=== PATIENT | female | born 1990 ===

== ENCOUNTER 2019-04-29 07:49 | Inpatient (IN) ==
[2019-04-29] MEDS ORDERED: OXYTOCIN 30 UNITS/500 ML BAG IV PRN ×2 (08:10)
[2019-04-29 08:31] LABS: Hematocrit (blood only) 36.6 % (37-47); Hemoglobin 12.6 g/dL (12.0-16.0); Mean Corpuscular Volume 97.3 fL (80-100); Mean Platelet Volume 10.4 fL (7.4-10.4); Platelet Count 223 K/uL (130-400); RDW Coefficient of Variation 13.7 % (11.5-14.5); Red Blood Count 3.76 M/uL (4.2-5.4); White Blood Count 10.18 K/uL (4.8-10.8)
[2019-04-29 08:34] LABS: Mean Corpuscular Hgb Conc 34.4 g/dL (32-36)
[2019-04-29] MEDS: LACTATED RINGER'S 1,000 ML IV PRN ×3 (08:46→16:29)
--- NOTE | 2019-04-29 09:05 | History & Physical Report ---
Date of Service April 29, 2019 Assessment & Plan (1) Encounter for induction of labor: IUP at 39 weeks for IOL now vertex presentation. The baby had been breech since at least 36 weeks. begin pitocin induction patient will want epidural analgesia when appropriate anticipate vaginal delivery. Present on Admission?: Yes History of Present Illness Primary Care Provider: NO PCP Patient is a 29 yo white female EDC 05/04/19 who presents at 39 weeks for IOL. The baby had been breech at least since 36 weeks & was scheduled for C/S today. However, on exam in the office yesterday the baby was vertex. The patient and her were given the option to await labor vs start IOL now & they wish to proceed with induction. GBS (-) Allergies Allergy/AdvReac Type Severity Reaction Status Date / Time No Known Allergies Allergy Verified 04/28/19 09:35 Home Medications Home Medications Medication Instructions Recorded Confirmed Type calcium carbonate 1 dose PO DAILY 04/22/19 04/29/19 History prenat.vits,leslie,[id number] 1 dose PO DAILY 04/22/19 04/29/19 History Patient History Family History Grandmother (Maternal) Family history of diabetes mellitus Hypertension Social History Preferred Language: Japanese Communication Ability: Effective Human Resources Recruiter Required: No Beliefs That Will Affect Care: None marital status: Current Living Situation: Spouse Current Living Situation Comment: spouse Other Information That Helps Us Care for You: No Feels Safe at Home: Yes Safety Concerns: Feels Safe At This Time Smoking Status: Never smoker Second Hand Exposure: No ; Hx Alcohol Use: No Hx Substance Use: No Review of Systems All systems reviewed & are unremarkable except as noted in HPI & below Physical Exam Constitutional: WD/WN, vitals as above Respiratory: normal respiratory effort, lungs clear to auscultation Cardiovascular: RRR, no murmur, no edema Gastrointestinal (Abdomen): normal bowel sounds, soft, nontender, no hepatosplenomegaly Genitourinary: OB Exam Abdomen: + vertex (by exam & sonogram today), + estimated weight (7-8 pounds) and + irregular contractions Manual OB Exam: + cervical dilation 2 cm, + cervical effacement 70% and + station -2 (ballotable) OB Exam Monitor Tracing: + external FHT monitor used, + external uterine monitor used, + category I and + normal FHT variability Results & Data Vital Signs (Past 12 Hours) Vital Signs Pulse BP 04/29/19 07:53 66 127/79
[2019-04-29] MEDS ORDERED: ePHEDrine sulfate 50 MG/ML AMP ONE (14:21)
[2019-04-29] MEDS ORDERED: BUPIVACAINE 0.25% 30 ML VIAL ONE (14:21)
[2019-04-29] MEDS ORDERED: fentaNYL 2MCG/ML ROPIV 1.25MG/ML 100 ML BAG EPI ONE (14:22)
[2019-04-29] MEDS ORDERED: fentaNYL citrate 100 MCG/2 ML VIAL ONE (14:22)
--- NOTE | 2019-04-29 14:36 | Anesthesiology Consultation ---
Date of Service April 29, 2019 Assessment & Plan (1) Encounter for pre-operative examination: Chart Review Chart Review: Patient NOT seen in Pre Admission Testing and Acceptable Risk for Labor Epidural Consults Requested none History Height/Weight Height: 5 ft 2 in Weight: 65.317 kg Allergies Allergy/AdvReac Type Severity Reaction Status Date / Time No Known Allergies Allergy Verified 04/28/19 09:35 Medications Home Medications Medication Instructions Recorded Confirmed Last Taken calcium carbonate 1 dose PO DAILY 04/22/19 04/29/19 Unknown prenat.vits,leslie,[id number] 1 dose PO DAILY 04/22/19 04/29/19 04/27/19 08:00 Active Medications Generic Name Dose Route Start Last Admin Trade Name Freq PRN Reason Stop Dose Admin Lactated Ringer's 1,000 mls @ 125 mls/hr 04/29/19 08:10 04/29/19 14:25 Lr IV 05/01/19 08:09 999 mls/hr .Q8H PRN Infusion L&D Protocol Protocol Oxytocin 30 units in 500 mls @ 17 mls/hr 04/29/19 08:10 04/29/19 14:05 Pitocin IV 05/01/19 08:09 1.02 units/hr .Q24H PRN 17 mls/hr Labor Induction/Augmentation Titration Protocol 1.02 UNITS/HR Past Medical History Medical History No known health problems Exercise / Class Metabolic Activity II 4-5 Yardwork/Stairs/Walk up hill Past Family History Family History Grandmother (Maternal) Family history of diabetes mellitus Hypertension Past Surgical History Surgical History History of wisdom tooth extraction Past Anesthesia History No Hx of Anesthesia Complications and No Family Hx of Anesthesia Complications History of PONV No Hx of PONV and No Hx of Motion Sickness Social History Smoking Status: Never smoker Hx Alcohol Use: No Hx Substance Use: No substance use type: does not use Physical Exam Vital Signs Last Vital Signs Temp 36.7 C 04/29/19 14:31 Pulse 63 04/29/19 14:31 Resp 18 04/29/19 14:31 BP 154/78 H 04/29/19 14:31 Pulse Ox 95 04/29/19 14:31 Testing Laboratory Results 04/29/19 08:23
[2019-04-29] MEDS ORDERED: DiphenhydrAMINE HCL 50 MG/ML VIAL IV PRN (15:06)
[2019-04-29] MEDS ORDERED: fentaNYL 2MCG/ML ROPIV 1.25MG/ML 100 ML BAG EPI PRN (15:06)
[2019-04-29] MEDS ORDERED: NALBUPHINE HCL INJ 10 MG/ML AMP IV PRN (15:06)
[2019-04-29] MEDS ORDERED: ONDANSETRON INJ 2 MG/ML 2 ML VIAL IV PRN (15:06)
[2019-04-29] MEDS ORDERED: NALOXONE HCL 1 MG in SODIUM CHLORIDE 0.9% 1000ML 1,000 ML IV PRN (15:06)
[2019-04-29] MEDS ORDERED: NALOXONE HCL 0.4 MG/1 ML VIAL/CARP IV PRN (15:06)
[2019-04-29] MEDS ORDERED: ePHEDrine sulfate 50 MG/ML AMP IV PRN (15:06)
[2019-04-29] MEDS ORDERED: CALCIUM CARBONATE 500 MG CHEWABLE TAB PO PRN (23:38)
[2019-04-30] MEDS: LACTATED RINGER'S 1,000 ML IV PRN (00:20)
[2019-04-30] MEDS ORDERED: SUPERCREAM 0.870% 15 GM JAR EXT PRN (01:39)
[2019-04-30] MEDS ORDERED: BENZOCAINE 20% AER SPR 82.5 GM CAN EXT PRN (01:39)
[2019-04-30] MEDS ORDERED: ACETAMINOPHEN 325 MG TAB PO PRN (01:39)
[2019-04-30] MEDS ORDERED: HYDROCORTISONE ACETATE 25 MG SUPP PR PRN (01:39)
[2019-04-30] MEDS ORDERED: BISACODYL 10 MG SUPP PR PRN (01:39)
[2019-04-30] MEDS ORDERED: OXYCODONE/ACETAMINOPHEN 5mg/325mg TAB PO PRN (01:39)
[2019-04-30] MEDS ORDERED: DIPHTHERIA/TETANUS/PERTUSSIS 0.5 ML SYR/VIAL IM ONE (01:39)
[2019-04-30] MEDS ORDERED: OXYTOCIN 30 UNITS/500 ML BAG IV PRN (01:39)
--- NOTE | 2019-04-30 04:24 | Anesthesia Procedure Note ---
Date of Service April 30, 2019 Anesthesia Post Epidural Note Vital Signs Vital Signs: Temp Pulse Resp BP Pulse Ox 36.7 C 84 16 135/71 87 L 04/30/19 01:38 04/30/19 03:40 04/30/19 03:40 04/30/19 03:40 04/30/19 01:34 Pain Intensity Bilateral Abdomen: Pain Intensity: 0 Notes Mental Status: alert / awake / arousable and participated in evaluation Patient Amnestic to Procedure: No Nausea / Vomiting: adequately controlled Pain: adequately controlled Airway Patency, RR, SpO2: stable & adequate BP & HR: stable & adequate Hydration State: stable & adequate Neuraxial Anesthesia: was administered and sensory block resolved Anesthetic Complications: no major complications apparent and Pt Satisfied with anesthetic care Epidural: Removed without complications and With tip intact
--- NOTE | 2019-04-30 04:25 | Delivery Summary ---
DATE OF OPERATION: 04/30/2019 DATE OF DELIVERY: 04/30/2019 The patient is a 29-year-old G1, P0 white female who presented for induction because of a prior breech presentation, now vertex at 39 weeks. She was begun on Pitocin for induction. She received epidural analgesia at 5 cm dilation. Membranes were ruptured for copious amount of clear fluid at approximately 7 cm dilation. At that point, there was persistent variable decelerations. The Pitocin was stopped. It was then restarted after the heart tracing had become category I once again. She progressed to full dilation and pushed effectively over intact perineum for delivery of a viable female infant. Mouth and nasopharynx were suctioned after the delivery of the infant. The cord was short and this was clamped and cut prior to putting the on the mother's abdomen. The was vigorous and crying and moving all 4 limbs. The placenta was expressed intact with a 3-vessel cord. A superficial abrasion of the vaginal wall was bleeding and therefore repaired with 3-0 chromic in the usual fashion. Estimated blood loss was 150 mL. Mother and were doing well after delivery. bleeding was controlled with dilute Pitocin. I attest to the content of the Intraoperative Record and any orders documented therein. Any exception s are noted below.
[2019-04-30] MEDS: PRENATAL VITAMIN 1 TAB PO SCH (08:11)
[2019-04-30] MEDS: DOCUSATE SODIUM 100 MG CAP PO SCH ×2 (08:11→20:12)
--- NOTE | 2019-04-30 09:34 | Obstetrical Progress Note ---
Date of Service April 30, 2019 Assessment & Plan (1) Encounter for care and examination after delivery: satisfactory exam. continue current care plan Subjective Ambulation: ambulating normally Voiding: no voiding problems Passing Gas:: Yes Diet Tolerance:: regular diet Lochia:: Small Feeding Type:: breast feeding Current Pain Level(1-10): 1 Review of Systems All systems reviewed & are unremarkable except as noted in HPI & below Physical Exam Constitutional WD/WN, vitals as above Genitourinary OB Exam Abdomen: + fundal height Fundus: + firm and + relation to umbilicus (at U) no calf tenderness Results & Data Vital Signs (Past 12 Hours) Vital Signs Temp Pulse Pulse Resp BP BP Pulse Ox 04/30/19 08:15 97.9 F 58 L 16 127/84 04/30/19 05:10 98.6 F 76 16 129/82 97 04/30/19 04:40 68 20 128/74 04/30/19 04:24 68 128/74 04/30/19 03:40 84 16 135/71 04/30/19 03:38 65 144/65 H 04/30/19 03:23 62 123/63 04/30/19 03:07 64 18 120/69 04/30/19 02:53 70 124/73 04/30/19 02:40 65 20 125/58 L 04/30/19 02:39 83 203/78 H 04/30/19 02:24 70 20 113/70 04/30/19 02:23 70 113/70 04/30/19 02:10 20 04/30/19 02:04 75 129/68 04/30/19 01:55 85 18 149/74 H 04/30/19 01:38 98.1 F 88 20 147/65 H 04/30/19 01:34 91 H 87 L 04/30/19 01:31 101 H 93 04/30/19 01:26 93 H 93 04/30/19 01:21 103 H 93 04/30/19 01:19 100 H 132/69 04/30/19 01:17 92 H 89 L 04/30/19 01:16 89 93 04/30/19 01:11 95 H 92 04/30/19 01:10 104 H 88 L 04/30/19 01:06 92 H 90 04/30/19 01:05 82 85 L 04/30/19 01:03 80 122/66 04/30/19 01:01 88 83 L 04/30/19 01:00 84 22 89 L 04/30/19 00:56 100 H 88 L 04/30/19 00:55 91 H 87 L 04/30/19 00:51 85 88 L 04/30/19 00:49 93 H 87 L 04/30/19 00:48 90 129/60 04/30/19 00:46 77 87 L 04/30/19 00:44 91 H 88 L 04/30/19 00:41 84 89 L 04/30/19 00:38 87 89 L 04/30/19 00:37 98.4 F 20 04/30/19 00:36 90 88 L 04/30/19 00:34 109 H 149/96 H 04/30/19 00:32 99 H 88 L 04/30/19 00:31 111 H 94 04/30/19 00:26 91 H 90 04/30/19 00:21 94 H 90 04/30/19 00:18 76 131/70 04/30/19 00:16 93 H 95 04/30/19 00:14 91 H 89 L 04/30/19 00:11 74 91 04/30/19 00:09 101 H 89 L 04/30/19 00:06 87 94 04/30/19 00:05 82 138/64 04/30/19 00:01 83 94 04/29/19 23:59 20 04/29/19 23:56 79 92 04/29/19 23:51 76 92 04/29/19 23:50 70 132/78 04/29/19 23:46 84 93 04/29/19 23:41 71 92 04/29/19 23:36 72 91 04/29/19 23:33 71 130/66 04/29/19 23:31 78 93 04/29/19 23:26 73 91 04/29/19 23:21 94 H 95 04/29/19 23:18 75 124/76 04/29/19 23:16 84 93 04/29/19 23:11 73 94 04/29/19 23:06 71 93 04/29/19 23:03 70 123/65 04/29/19 23:01 72 94 04/29/19 22:56 67 92 04/29/19 22:51 65 92 04/29/19 22:49 64 122/65 04/29/19 22:46 68 94 04/29/19 22:41 66 93 04/29/19 22:37 63 89 L 04/29/19 22:36 63 90 04/29/19 22:35 98.4 F 20 04/29/19 22:33 64 115/64 04/29/19 22:31 76 92 04/29/19 22:26 67 87 L 04/29/19 22:21 67 88 L 04/29/19 22:19 68 89 L 04/29/19 22:18 63 124/75 04/29/19 22:16 70 91 04/29/19 22:12 75 89 L 04/29/19 22:11 71 88 L 04/29/19 22:07 75 89 L 04/29/19 22:06 82 91 04/29/19 22:04 69 122/76 04/29/19 22:01 65 88 L 04/29/19 22:00 20 04/29/19 21:57 66 89 L 04/29/19 21:56 100 H 90 04/29/19 21:51 70 89 L 04/29/19 21:48 70 123/67 04/29/19 21:46 72 88 L 04/29/19 21:41 79 89 L 04/29/19 21:37 72 89 L 04/29/19 21:36 74 90 04/29/19 21:35 68 123/75 04/29/19 21:31 89 90
[2019-04-30] MEDS: IBUPROFEN 600 MG TAB PO PRN ×2 (15:03→20:12)
[2019-05-01] MEDS: IBUPROFEN 600 MG TAB PO PRN ×2 (06:44→11:45)
[2019-05-01 06:45] LABS: Hematocrit (blood only) 33.6 % (37-47); Hemoglobin 11.4 g/dL (12.0-16.0); Mean Corpuscular Hgb Conc 33.9 g/dL (32-36); Mean Corpuscular Volume 96.8 fL (80-100); Mean Platelet Volume 10.8 fL (7.4-10.4); Platelet Count 217 K/uL (130-400); RDW Standard Deviation 49.3 fL (36.4-46.3); Red Blood Count 3.47 M/uL (4.2-5.4); White Blood Count 11.58 K/uL (4.8-10.8)
[2019-05-01] MEDS: DOCUSATE SODIUM 100 MG CAP PO SCH (08:45)
[2019-05-01] MEDS: PRENATAL VITAMIN 1 TAB PO SCH (08:45)
--- NOTE | 2019-05-01 09:05 | Obstetrical Progress Note ---
Date of Service May 01, 2019 Assessment & Plan (1) Encounter for care and examination after delivery: Doing well. Plan d/c. Instructions given. Day #:: 2 Subjective Ambulation: ambulating normally Voiding: no voiding problems Passing Gas:: Yes Diet Tolerance:: regular diet Lochia:: Small Feeding Type:: breast feeding Doing well. Desires d/c. Physical Exam Constitutional WD/WN, vitals as above Cardiovascular Extremities: no edema Gastrointestinal (Abdomen) abd--soft, nt, nd, ff/nt at u Results & Data Vital Signs (Past 12 Hours) Vital Signs Temp Pulse Resp BP 04/30/19 23:35 36.7 C 61 18 104/66
[2019-05-01] MEDS ORDERED: BISACODYL 5 MG TABEC PO SCH (20:00)
== END 2019-05-01 12:05 | disposition home or self-care (01) | DRG 807 ==
LOC: 4S1 07:49 → 4S2 04-30 05:00